=== PATIENT | female | born 1955 | race Caucasian/White ===

== ENCOUNTER → 2021-05-04 | Outpatient (CLI) | payer MEDICARE, OTHER | LOC: CT 11:00 → MAMO 11:00 | DX: Z12.31 Encounter for screening mammogram for malignant neoplasm of breast (principal); F17.210 Nicotine dependence, cigarettes, uncomplicated; J98.11 Atelectasis | CPT/HCPCS: 71271; 77063; 77067 ==

== ENCOUNTER 2021-10-27 23:03 | Inpatient (IN) | payer MEDICARE, OTHER ==
[~2021-10-27] VITALS: Ht 165.1 cm; Wt 54.4 kg
[2021-10-28 00:45] LABS: HEMOGLOBIN 10.5 gm/dl (12.3-15.3); RED BLOOD COUNT 3.44 M/UL (4.00-5.10); WHITE BLOOD COUNT 8.6 K/UL (4.5-11.0)
[2021-10-28 04:58] LABS: RED BLOOD COUNT 3.56 M/UL (4.00-5.10); WHITE BLOOD COUNT 8.8 K/UL (4.5-11.0)
[2021-10-28] MEDS ORDERED: DESYREL 50 MG T50 MG PO (11:41)
[2021-10-28] MEDS ORDERED: CLONIDINE HCL0.2 MG PO (11:41)
[2021-10-28] MEDS ORDERED: QUETIAPINE FUMA50 MG PO (11:42)
[2021-10-28] MEDS ORDERED: CITALOPRAM HBR40 MG PO (11:42)
[2021-10-28] MEDS ORDERED: SYMBICORT 16010.2 GM INH (11:43)
[2021-10-28] MEDS ORDERED: BUPROPION HCL200 MG PO (11:43)
[2021-10-28] MEDS ORDERED: SPIRIVA RESPIMAT4 GM INH (11:44)
[2021-10-28] MEDS ORDERED: PROVENTIL HFA6.7 GM INH (11:44)
[2021-10-28] MEDS ORDERED: VITAMIN B-121000 MC3 PO (11:45)
[2021-10-28] MEDS ORDERED: BUPRENORPHIN-N1 EACH SL (11:50)
[2021-10-29 04:33] LABS: HEMOGLOBIN 11.2 gm/dl (12.3-15.3); RED BLOOD COUNT 3.66 M/UL (4.00-5.10); WHITE BLOOD COUNT 10.9 K/UL (4.5-11.0)
[2021-10-29 05:14] LABS: BUN/CREATININE RATIO 22 (0-10)
[2021-10-30 04:09] LABS: HEMOGLOBIN 11.3 gm/dl (12.3-15.3); RED BLOOD COUNT 3.71 M/UL (4.00-5.10); WHITE BLOOD COUNT 9.6 K/UL (4.5-11.0)
[2021-10-30 04:43] LABS: BUN/CREATININE RATIO 21 (0-10)
[2021-10-31 02:49] LABS: HEMOGLOBIN 11.3 gm/dl (12.3-15.3); RED BLOOD COUNT 3.7 M/UL (4.00-5.10)
[2021-10-31 02:55] LABS: WHITE BLOOD COUNT 14.6 K/UL (4.5-11.0)
[2021-10-31 03:13] LABS: BUN/CREATININE RATIO 23 (0-10)
--- NOTE | 2021-10-31 09:32 | NUR ---
PATIENT ROOM AIR SATURATION 87%
== END 2021-10-31 15:54 | disposition home or self-care (01) | DRG 199 ==
LOC: ER1 23:03 → CDU 10-28 04:03 → PROG CARE 10-28 04:03
PROVIDERS: Family Medicine; Internal Medicine; ADMIT Internal Medicine
PROC: 5A0935A Assistance with Respiratory Ventilation, Less than 24 Consecutive Hours, High Flow/Velocity Cannula (ICD-10-PCS; principal; 2021-10-28)
DX: S27.0XXA Traumatic pneumothorax, initial encounter (principal); J96.01 Acute respiratory failure with hypoxia; Z20.822 Contact with and (suspected) exposure to COVID-19; S22.41XA Multiple fractures of ribs, right side, initial encounter for closed fracture; J90 Pleural effusion, not elsewhere classified; J98.11 Atelectasis; F11.20 Opioid dependence, uncomplicated; S27.2XXA Traumatic hemopneumothorax, initial encounter; J44.9 Chronic obstructive pulmonary disease, unspecified; I10 Essential (primary) hypertension; M54.9 Dorsalgia, unspecified; F31.9 Bipolar disorder, unspecified; G89.4 Chronic pain syndrome; D35.00 Benign neoplasm of unspecified adrenal gland; F17.210 Nicotine dependence, cigarettes, uncomplicated; F43.10 Post-traumatic stress disorder, unspecified; W18.30XA Fall on same level, unspecified, initial encounter; Y92.091 Bathroom in other non-institutional residence as the place of occurrence of the external cause; Z90.710 Acquired absence of both cervix and uterus; Z98.890 Other specified postprocedural states; Z83.3 Family history of diabetes mellitus; Z72.89 Other problems related to lifestyle
CPT/HCPCS: 36415; 36600; 71045; 71250; 80048; 80053; 82550; 82553; 82803; 83605; 83735; 83874; 84484; 85025; 85027; 93005; 94640; 94664; 94760; 96374; 96376; 97116; 97116-GP-CQ; 97161; 99285; J2270; J2405; J2930; J7030; U0002